=== PATIENT | female | born 1995 | race Caucasian/White ===

== ENCOUNTER → 2021-08-13 | Outpatient (CLI) | payer MEDICAID ==
[~2021-08-13] MED LIST: ATIVAN0.5 MG PO; K-DUR 20MEQ20 MEQ PO; KEPPRA250 MG PO; LAMICTAL150 MG PO; LAMICTAL25 MG PO; TOPAMAX200 MG PO; TOPAMAX25 MG PO; Zofran4 MG PO
[2021-08-13 08:38] LABS: BASO % 0.5 % (0.0-1.0); EOS # 0.1 10*3/uL (0.0-0.4); EOS % 1.8 % (1.0-4.0); HEMATOCRIT 38.3 % (37.0-47.0); LYMPH # 2.1 10*3/uL (1.3-4.4); MEAN CELL VOLUME 87.8 fl (81.0-99.0); MEAN CORPUSCULAR HGB 28.7 pg (27.0-31.0); MEAN CORPUSCULAR HGB CONC 32.6 g/dl (33.0-37.0); MEAN PLATELET VOLUME 12.1 fl (9.6-12.3); MONO # 0.6 10*3/uL (0.1-1.0); MONO % 11.4 % (3.0-9.0); NEUT # 2.5 10*3/uL (2.3-7.9); NEUT % 45.8 % (47.0-73.0); PLATELET COUNT AUTOMATED 169 10*3/uL (130-400); RED BLOOD COUNT 4.36 10*6/uL (4.10-5.10); RED CELL DISTRI WIDTH 13.1 % (0-14.5); WHITE BLOOD COUNT 5.5 10*3/uL (4.8-10.8)
[2021-08-13 08:55] LABS: ALBUMIN 3.4 gm/dl (3.1-4.5); ALKALINE PHOSPHATASE 85 U/L (45-117); BUN 10 mg/dl (7-24); CHLORIDE 119 mmol/L (98-107); CREATININE 0.56 mg/dL (0.55-1.02); POTASSIUM 3.8 mmol/L (3.5-5.1); SGOT/AST 24 IU/L (3-35); SGPT/ALT 54 U/L (12-78); SODIUM 147 mmol/L (136-145); TOTAL PROTEIN 7.6 gm/dL (6.4-8.2)
[2021-08-15 18:06] LABS: TOPAMAX (TOPIRAMATE) 14.9 ug/mL (2.0-25.0)
== END | disposition home or self-care (01) ==
LOC: LAB 08:16
PROVIDERS: ATTEND Psychiatry & Neurology Neurology
DX: G40.209 Localization-related (focal) (partial) symptomatic epilepsy and epileptic syndromes with complex partial seizures, not intractable, without status epilepticus (principal)

== ENCOUNTER 2022-12-18 17:45 | Inpatient (IN) | payer OTHER, MEDICAID ==
[~2022-12-18] VITALS: Ht 149.8 cm; Wt 40.9 kg
[2022-12-18 17:53] VITALS: BP 95/73
[2022-12-18 18:40] LABS: HEMATOCRIT 44.2 % (37.0-47.0); MEAN CELL VOLUME 88.2 fl (81.0-99.0); MEAN CORPUSCULAR HGB 28.7 pg (27.0-31.0); MEAN CORPUSCULAR HGB CONC 32.6 g/dl (33.0-37.0); MEAN PLATELET VOLUME 10.5 fl (9.6-12.3); PLATELET COUNT AUTOMATED 158 10*3/uL (130-400); RED BLOOD COUNT 5.01 10*6/uL (4.10-5.10); RED CELL DISTRI WIDTH 12.2 % (0-14.5); WHITE BLOOD COUNT 30.6 10*3/uL (4.8-10.8)
[2022-12-18 18:42] LABS: MANUAL DIFF REFLEX YES
[2022-12-18 18:51] LABS: ACT PARTIAL THROMBO TIME 30.7 SECONDS (20.0-32.1)
[2022-12-18 18:57] LABS: ALKALINE PHOSPHATASE 127 U/L (46-116); BUN 20 mg/dl (9-23); CHLORIDE 109 mmol/L (98-107); LIPASE 22 U/L (12-53); POTASSIUM 3.1 mmol/L (3.4-5.1); SGPT/ALT 11 U/L (10-49); TOTAL PROTEIN 7.9 gm/dL (6.0-8.0)
[2022-12-18 19:01] LABS: TOTAL CELLS COUNTED 100 #CELLS
[2022-12-18 19:05] LABS: BURR CELLS FEW; PLATELET SUFFICIENCY NORMAL (NORMAL); TOXIC GRANULATION SLIGHT
[2022-12-18 20:06] LABS: BILIRUBIN 1+ (Negative); BLOOD 2+ (Negative); CLARITY Turbid (Clear); COLOR Dark Yellow (Yellow); GLUCOSE Negative (Negative); KETONE 1+ (Negative); LEUKO ESTERASE 3+ (Negative); NITRITE Positive (Negative)
[2022-12-18 20:19] LABS: BACTERIA 3+
[2022-12-18 20:20] LABS: WBC 51-100 wbc/hpf (0-5)
[2022-12-18 21:16] VITALS: BP 91/58
[2022-12-18 22:46] VITALS: BP 87/51
[2022-12-19 00:31] VITALS: BP 87/53
[2022-12-19 00:40] VITALS: BP 91/53
[2022-12-19 06:55] LABS: HEMATOCRIT 36.8 % (37.0-47.0); MEAN CELL VOLUME 89.5 fl (81.0-99.0); MEAN CORPUSCULAR HGB 28.2 pg (27.0-31.0); MEAN CORPUSCULAR HGB CONC 31.5 g/dl (33.0-37.0); MEAN PLATELET VOLUME 11.5 fl (9.6-12.3); PLATELET COUNT AUTOMATED 153 10*3/uL (130-400); RED BLOOD COUNT 4.11 10*6/uL (4.10-5.10); RED CELL DISTRI WIDTH 12.6 % (0-14.5)
[2022-12-19 07:01] LABS: MANUAL DIFF REFLEX YES; WHITE BLOOD COUNT 38.1 10*3/uL (4.8-10.8)
[2022-12-19 07:41] LABS: PLATELET SUFFICIENCY NORMAL (NORMAL); TOTAL CELLS COUNTED 100 #CELLS
[2022-12-19 08:16] LABS: BUN 19 mg/dl (9-23); CHLORIDE 112 mmol/L (98-107); POTASSIUM 2.9 mmol/L (3.4-5.1)
[2022-12-19 12:00] VITALS: BP 106/72
[2022-12-19 16:00] VITALS: BP 107/80
[2022-12-19 20:00] VITALS: BP 106/67
[2022-12-20] VITALS: BP 98/65
[2022-12-20 06:48] LABS: HEMATOCRIT 34.7 % (37.0-47.0); MEAN CELL VOLUME 87.8 fl (81.0-99.0); MEAN CORPUSCULAR HGB 28.6 pg (27.0-31.0); MEAN CORPUSCULAR HGB CONC 32.6 g/dl (33.0-37.0); MEAN PLATELET VOLUME 11.1 fl (9.6-12.3); PLATELET COUNT AUTOMATED 160 10*3/uL (130-400); RED BLOOD COUNT 3.95 10*6/uL (4.10-5.10); RED CELL DISTRI WIDTH 12.6 % (0-14.5); WHITE BLOOD COUNT 24.7 10*3/uL (4.8-10.8)
[2022-12-20 06:52] LABS: MANUAL DIFF REFLEX YES
[2022-12-20 07:24] LABS: CHLORIDE 110 mmol/L (98-107); POTASSIUM 3.4 mmol/L (3.4-5.1)
[2022-12-20 07:30] LABS: BUN 5 mg/dl (9-23)
[2022-12-20 07:31] LABS: ATYPICAL LYMPHS 1 % (0-0); BURR CELLS FEW; PLATELET SUFFICIENCY NORMAL (NORMAL); TOTAL CELLS COUNTED 100 #CELLS
[2022-12-20 07:32] LABS: DOHLE BODIES FEW; POLYCHROMASIA SLIGHT; TOXIC GRANULATION SLIGHT
[2022-12-20 08:00] VITALS: BP 117/73
[2022-12-20 12:00] VITALS: BP 99/70
[2022-12-20 16:00] VITALS: BP 107/69
[2022-12-20 20:00] VITALS: BP 112/66
[2022-12-21 06:29] LABS: BASO # 0.1 10*3/uL (0.0-0.1); BASO % 0.8 % (0.0-1.0); EOS # 0.1 10*3/uL (0.0-0.4); LYMPH # 3.7 10*3/uL (1.3-4.4); LYMPH % 29.3 % (27.0-41.0); MEAN CELL VOLUME 87.6 fl (81.0-99.0); MEAN CORPUSCULAR HGB 29.2 pg (27.0-31.0); MEAN CORPUSCULAR HGB CONC 33.3 g/dl (33.0-37.0); MEAN PLATELET VOLUME 11.1 fl (9.6-12.3); MONO % 7.9 % (3.0-9.0); NEUT # 7.6 10*3/uL (2.3-7.9); NEUT % 59.7 % (47.0-73.0); PLATELET COUNT AUTOMATED 199 10*3/uL (130-400); RED BLOOD COUNT 4.11 10*6/uL (4.10-5.10); RED CELL DISTRI WIDTH 12.8 % (0-14.5); WHITE BLOOD COUNT 12.7 10*3/uL (4.8-10.8)
[2022-12-21 06:44] LABS: BUN < 5 mg/dl (9-23); CHLORIDE 110 mmol/L (98-107); POTASSIUM 3.5 mmol/L (3.4-5.1)
[2022-12-21 08:00] VITALS: BP 100/62; BP 107/67
[2022-12-21 12:00] VITALS: BP 102/70; BP 113/86
[2022-12-21 16:00] VITALS: BP 96/50
[2022-12-21] MEDS ORDERED: CIPROFLOXACIN750 MG PO ×2 (16:05)
[2022-12-21 20:00] VITALS: BP 124/78
[2022-12-22] VITALS: BP 96/50
[2022-12-22 06:19] LABS: BASO # 0.1 10*3/uL (0.0-0.1); BASO % 1.9 % (0.0-1.0); EOS # 0.1 10*3/uL (0.0-0.4); EOS % 1.4 % (1.0-4.0); HEMATOCRIT 38.8 % (37.0-47.0); LYMPH # 3.7 10*3/uL (1.3-4.4); MEAN CELL VOLUME 86.6 fl (81.0-99.0); MEAN CORPUSCULAR HGB 28.6 pg (27.0-31.0); MEAN PLATELET VOLUME 11.3 fl (9.6-12.3); MONO # 0.6 10*3/uL (0.1-1.0); MONO % 7.7 % (3.0-9.0); NEUT # 2.7 10*3/uL (2.3-7.9); PLATELET COUNT AUTOMATED 249 10*3/uL (130-400); RED BLOOD COUNT 4.48 10*6/uL (4.10-5.10); RED CELL DISTRI WIDTH 12.9 % (0-14.5); WHITE BLOOD COUNT 7.4 10*3/uL (4.8-10.8)
[2022-12-22 08:00] VITALS: BP 104/71
[2022-12-22] MEDS ORDERED: CEFUROXIME AXE250 MG PO (08:28)
== END 2022-12-22 09:40 | disposition home or self-care (01) | DRG 872 ==
LOC: ED 17:45 → EDHOLD 21:58 → 4E 21:58
PROVIDERS: Emergency Medicine; ADMIT Internal Medicine; ATTEND Internal Medicine
DX: A41.51 Sepsis due to Escherichia coli [E. coli] (principal); N39.0 Urinary tract infection, site not specified; F84.2 Rett's syndrome; Z20.822 Contact with and (suspected) exposure to COVID-19; K59.00 Constipation, unspecified; G40.909 Epilepsy, unspecified, not intractable, without status epilepticus

== ENCOUNTER → 2023-05-26 | Outpatient (CLI) | payer OTHER, MEDICAID ==
[~2023-05-26] MED LIST changes: +CEFUROXIME AXE250 MG PO; +CIPROFLOXACIN750 MG PO
[2023-05-26 08:57] LABS: BASO # 0.1 10*3/uL (0.0-0.1); EOS # 0.2 10*3/uL (0.0-0.4); EOS % 2.8 % (1.0-4.0); HEMATOCRIT 40.9 % (37.0-47.0); LYMPH # 2.6 10*3/uL (1.3-4.4); LYMPH % 36.5 % (27.0-41.0); MEAN CELL VOLUME 89.5 fl (81.0-99.0); MEAN CORPUSCULAR HGB 28.9 pg (27.0-31.0); MEAN CORPUSCULAR HGB CONC 32.3 g/dl (33.0-37.0); MEAN PLATELET VOLUME 11.7 fl (9.6-12.3); MONO # 0.8 10*3/uL (0.1-1.0); MONO % 10.7 % (3.0-9.0); NEUT # 3.4 10*3/uL (2.3-7.9); NEUT % 48.7 % (47.0-73.0); PLATELET COUNT AUTOMATED 181 10*3/uL (130-400); RED BLOOD COUNT 4.57 10*6/uL (4.10-5.10)
[2023-05-26 09:20] LABS: ALKALINE PHOSPHATASE 108 U/L (46-116); BUN 10 mg/dl (9-23); CHLORIDE 112 mmol/L (98-107); POTASSIUM 3.9 mmol/L (3.4-5.1); SGPT/ALT 11 U/L (10-49); TOTAL PROTEIN 7.7 gm/dL (6.0-8.0)
[2023-05-26 09:53] LABS: VITAMIN D, 25-HYDROXY 23.5 ng/mL (30-100)
[2023-05-29 17:06] LABS: TOPAMAX (TOPIRAMATE) 12.1 ug/mL (2.0-25.0)
== END | disposition home or self-care (01) ==
LOC: LAB 08:28
PROVIDERS: ATTEND Psychiatry & Neurology Neurology
DX: F84.2 Rett's syndrome (principal); E55.9 Vitamin D deficiency, unspecified; R56.9 Unspecified convulsions

== ENCOUNTER 2025-10-16 02:58 | Inpatient (IN) | payer OTHER, MEDICAID ==
[~2025-10-16] VITALS: Ht 142 cm; Wt 44.2 kg
[2025-10-16 03:11] VITALS: BP 115/79
[2025-10-16] MEDS ORDERED: SODIUM CHLORIDE 0.9% 1,000 ML IV ONE ×2 (03:30→08:25)
[2025-10-16 04:38] LABS: MEAN CELL VOLUME 87.6 fl (81.0-99.0); MEAN CORPUSCULAR HGB 27.8 pg (27.0-31.0); MEAN PLATELET VOLUME 12.3 fl (9.6-12.3); NUCLEATED RED BLOOD CELL 0.0 % (0.0-0.0); NUCLEATED RED BLOOD CELL 0.0 10*3/uL (0.0-0.0); PLATELET COUNT AUTOMATED 181 10*3/uL (130-400); RED CELL DISTRI WIDTH 13.3 % (0-14.5)
[2025-10-16 04:39] LABS: MANUAL DIFF REFLEX YES
[2025-10-16 04:49] LABS: ACT PARTIAL THROMBO TIME 26.8 SECONDS (20.0-32.1)
[2025-10-16 04:54] LABS: BILIRUBIN Negative (Negative); BLOOD Negative (Negative); CLARITY Turbid (Clear); COLOR Yellow (Yellow); KETONE Negative (Negative); LEUKO ESTERASE 1+ (Negative); NITRITE Positive (Negative); PH 7.5 (4.5-8.0); SPECIFIC GRAVITY 1.025 (1.001-1.030); UROBILINOGEN 1.0 E.U./dl (0.0-1.0)
[2025-10-16 04:59] LABS: BUN 16 mg/dl (9-23); SGPT/ALT 19 U/L (5-49)
[2025-10-16 05:05] LABS: BACTERIA 3+; EPITHELIAL CELLS 31-40; RBC 0-2 rbc/hpf (0-2)
[2025-10-16 05:10] LABS: PLATELET SUFFICIENCY NORMAL (NORMAL)
[2025-10-16] MEDS ORDERED: SODIUM CHLORIDE 0.9% 1,000 ML IV SCH (05:20)
[2025-10-16 07:17] VITALS: BP 129/69
[2025-10-16] MEDS ORDERED: BISACODYL 5 MG TAB PO PRN (07:40)
[2025-10-16] MEDS ORDERED: ACETAMINOPHEN 325 MG TAB PO PRN (07:40)
[2025-10-16] MEDS ORDERED: BISACODYL 10 MG SUPP R PRN (07:40)
[2025-10-16] MEDS ORDERED: Ondansetron Hydrochloride 4 MG/2 ML VIAL IV PRN (07:40)
[2025-10-16] MEDS ORDERED: Acetaminophen/Hydrocodone 5 MG/325 MG TABLET PO PRN (07:40)
[2025-10-16] MEDS ORDERED: ACETAMINOPHEN 650 MG SUPP R PRN (07:40)
[2025-10-16] MEDS ORDERED: LORAZEPAM0.5 M1 PO (10:22)
[2025-10-16] MEDS ORDERED: ATIVAN1 MG PO (10:26)
[2025-10-16] MEDS ORDERED: ATIVAN0.5 MG PO (10:26)
[2025-10-16 11:00] VITALS: BP 123/73; BP 124/73
[2025-10-16] MEDS ORDERED: LORazepam 0.5 MG TAB PO SCH (11:30)
[2025-10-16] MEDS ORDERED: LAMOTRIGINE 100 MG TAB PO SCH (11:30)
[2025-10-16] MEDS ORDERED: TOPIRAMATE 100 MG TAB PO SCH (11:30)
[2025-10-16] MEDS ORDERED: LEVETIRACETAM 250 MG TAB PO SCH (11:30)
[2025-10-16 16:00] VITALS: BP 142/90
[2025-10-16 20:00] VITALS: BP 107/53
[2025-10-16] MEDS ORDERED: LORazepam 1 MG TAB PO SCH (22:00)
[2025-10-17 05:55] LABS: BUN 10 mg/dl (9-23); FREE T4 1.05 ng/dl (0.89-1.76); LDL CHOLESTEROL 51 mg/dL (9-159)
[2025-10-17 06:07] LABS: MEAN CELL VOLUME 88.2 fl (81.0-99.0); MEAN CORPUSCULAR HGB 28.4 pg (27.0-31.0); MEAN PLATELET VOLUME 12.5 fl (9.6-12.3); NUCLEATED RED BLOOD CELL 0.0 % (0.0-0.0); NUCLEATED RED BLOOD CELL 0.0 10*3/uL (0.0-0.0); PLATELET COUNT AUTOMATED 151 10*3/uL (130-400); RED CELL DISTRI WIDTH 13.6 % (0-14.5)
[2025-10-17 06:11] LABS: MANUAL DIFF REFLEX YES
[2025-10-17 07:14] LABS: PLATELET SUFFICIENCY NORMAL (NORMAL)
[2025-10-17 07:38] LABS: VITAMIN D, 25-HYDROXY 14.4 ng/mL (30-100)
[2025-10-17 07:46] VITALS: BP 98/70
[2025-10-17] MEDS ORDERED: POTASSIUM CHLORIDE IN WATER 100 ML IV SCH (08:00)
[2025-10-17 08:28] VITALS: BP 122/86
[2025-10-17] MEDS ORDERED: Lactated Ringer's Solution 500 ML IV ONE (08:28)
[2025-10-17 08:43] VITALS: BP 129/79
[2025-10-17 08:58] VITALS: BP 113/77
[2025-10-17] MEDS ORDERED: ERGOCALCIFEROL 50,000 IU CAP (1.25 MG) PO SCH (10:00)
[2025-10-17] MEDS ORDERED: VITAMIN D3125 MC1 PO (10:32)
[2025-10-17] MEDS ORDERED: PROTONIX40 MG PO (10:32)
[2025-10-17] MEDS ORDERED: OMNICEF300 MG PO (10:32)
[2025-10-17] MEDS ORDERED: Lidocaine Hydrochloride 2% 5 ML SDV IV ONE (10:40)
[2025-10-17] MEDS ORDERED: PROPOFOL 200 MG/20 ML VIAL IV ONE (10:40)
== END 2025-10-17 11:21 | disposition home or self-care (01) | DRG 871 ==
LOC: ED 02:58 → EDHOLD 06:35 → 5E 06:35
PROVIDERS: Internal Medicine; Student in an Organized Health Care Education/Training Program; ADMIT Internal Medicine; ATTEND Internal Medicine
PROC: 0DB78ZX Excision of Stomach, Pylorus, Via Natural or Artificial Opening Endoscopic, Diagnostic (ICD-10-PCS; principal; 2025-10-17)
PROC: 0DB38ZX Excision of Lower Esophagus, Via Natural or Artificial Opening Endoscopic, Diagnostic (ICD-10-PCS; 2025-10-17)
DX: A41.9 Sepsis, unspecified organism (principal); K20.91 Esophagitis, unspecified with bleeding; K92.0 Hematemesis; N30.00 Acute cystitis without hematuria; F84.2 Rett's syndrome; N13.6 Pyonephrosis; E87.8 Other disorders of electrolyte and fluid balance, not elsewhere classified; R73.9 Hyperglycemia, unspecified; K44.9 Diaphragmatic hernia without obstruction or gangrene; K59.00 Constipation, unspecified; Z79.899 Other long term (current) drug therapy; Z82.49 Family history of ischemic heart disease and other diseases of the circulatory system